=== PATIENT | male | born 1975 | race Caucasian/White ===

== ENCOUNTER → 2016-11-28 | Outpatient (CLI) | payer OTHER ==
--- NOTE | 2016-11-29 08:39 | USB ---
Reason for exam: clinical finding. History: Family history of breast cancer in maternal grandmother. Indicated problem(s): lump or thickening in the left breast. Physical Findings: Nurse Summary: prominent nodular tissue left breast 12/3 o'clock, all soft, movable, left breast BB 12 o'clock, 1 x 1cm, movable (nurse ts). US Breast LT Left breast ultrasound includes all four quadrants, the retroareolar region and axilla. Finding demonstrates a 1.2 x 0.5 x 1.2cm oval, solid, hyperechoic lesion at 11 o'clock palpable. These results were verbally communicated with the patient and result sheet given to the patient on 11/28/16. ASSESSMENT: Suspicious, BI-RAD 4 RECOMMENDATION: Ultrasound core biopsy of the left breast. Called Dr. Le with mammographic findings and has scheduled an appointment for the patient for 12/08/[address] Leblanc. PRELIMINARY REPORT CALLED AND FAXED TO DR. LEBLANC ON 11/29/16 /TP.
== END | disposition home or self-care (01) ==
LOC: RADUSWWP 13:59
PROVIDERS: ATTEND Family Medicine
DX: N60.02 Solitary cyst of left breast (principal); R92.8 Other abnormal and inconclusive findings on diagnostic imaging of breast

== ENCOUNTER → 2017-07-11 | Outpatient (CLI) | payer OTHER ==
--- NOTE | 2017-07-12 16:11 | MR ---
MRI CERVICAL SPINE AND THORACIC SPINE: DATED 07/11/2017 CLINICAL HISTORY: Neck pain and thoracic spine pain TECHNIQUE: Multiplanar, multisequence imaging of the cervical spine and thoracic is performed without IV contrast. COMPARISON: None. FINDINGS: Cervical spine: There is a focal reversal of the usual cervical lordosis at C3-C6. There is slight retrolisthesis of C5 on C6. Disc desiccation is noted from C2 through C6. Bone marrow signal is unremarkable. Visualize d portions of posterior fossa are also unremarkable. Cervical cord signal is within normal limits thr oughout. C2-C3: No significant disc disease, neuroforaminal stenosis or spinal canal stenosis. C3-C4: Mild uncovertebral hypertrophy and facet arthropathy resulting in minimal left neural foramina l narrowing. Right neuroforamen and spinal canal are patent. C4-C5: Uncovertebral hypertrophy and a small posterior disc osteophyte complex mildly narrows the bladimir tral subarachnoid space creating mild spinal canal stenosis and minimal bilateral neural foraminal na rrowing. C5-C6: There is a left paracentral disc herniation effacing the ventral subarachnoid space and creati ng mass effect upon the spinal cord resulting in moderate spinal canal stenosis and narrowing the lat eral recesses, left greater than right. Moderate to severe left neural foraminal narrowing and mild r ight neural foraminal narrowing are also seen as a result. No T2 hyperintense signal is seen within t he cord at this level to indicate acute cord edema or myelomalacia. C6-C7: Small broad-based disc bulge, facet arthropathy and uncovertebral hypertrophy resulting in mod erate left neural foraminal narrowing and mild right neural foraminal narrowing. No significant spina l canal stenosis. Thoracic spine: The thoracic vertebral bodies maintain normal vertebral body height and alignment. Multilevel disc de siccation is seen. Modic type II endplate changes are noted of the lower thoracic vertebral body endp lates. T1/T2 hyperintense vertebral body hemangioma seen of T7. Spinal cord signal is maintained thro ughout. T1-T5: No significant disc disease, neuroforaminal stenosis or spinal canal stenosis. T5-6: Disc desiccation is seen as well as a small broad-based disc bulge without significant neural f oraminal narrowing or spinal canal stenosis. T6-T7: Disc desiccation is seen as well as a small broad-based disc bulge without significant neural foraminal narrowing or spinal canal stenosis. T7-T8: No significant disc disease, neuroforaminal stenosis or spinal canal stenosis. T8-T9: There is a small central disc herniation and annular tear mildly narrowing the ventral subarac hnoid space and abutting the thecal sac creating mild spinal canal stenosis. No neural foraminal narr owing. T9-T10: There is disc desiccation without significant spinal canal stenosis or neuroforaminal narrowi ng. T10-T11: There is a small broad-based disc bulge resulting in mild bilateral neural foraminal narrowi ng. No spinal canal stenosis. T11-T12: There is a small broad-based disc bulge resulting in mild bilateral neural foraminal narrowi ng. No spinal canal stenosis. IMPRESSION: 1. Left paracentral disc herniation at C5-C6 creating moderate spinal canal stenosis impressing upon the spinal cord and resulting in moderate to severe left neural foraminal narrowing and mild right ne ural foraminal narrowing. No abnormal cord signal to indicate cord edema at this time or myelomalacia . 2. Small central disc herniation at T8-T9 with annular tear creating mild spinal canal stenosis witho ut neural foraminal narrowing. 3. Mild multilevel degenerative disc disease of the remainder of the cervical and thoracic spine with variable degrees of neural foraminal stenosis as described above. 4. Focal reversal of the usual cervical lordosis from C3 through C6 with slight retrolisthesis of C5 on C6.
== END | disposition home or self-care (01) ==
LOC: RADMRIMAIN 15:53
PROVIDERS: ATTEND Physician Assistant
DX: M48.02 Spinal stenosis, cervical region (principal); M48.04 Spinal stenosis, thoracic region; M99.71 Connective tissue and disc stenosis of intervertebral foramina of cervical region; M99.72 Connective tissue and disc stenosis of intervertebral foramina of thoracic region; M50.222 Other cervical disc displacement at C5-C6 level; M51.24 Other intervertebral disc displacement, thoracic region; M51.34 Other intervertebral disc degeneration, thoracic region; M50.30 Other cervical disc degeneration, unspecified cervical region; M43.12 Spondylolisthesis, cervical region
CPT/HCPCS: 72141; 72146

== ENCOUNTER → 2017-08-22 | Outpatient (CLI) | payer OTHER ==
--- NOTE | 2017-08-22 15:05 | XR ---
Abdomen HISTORY: Recurrent kidney stones Frontal view of the abdomen submitted. No comparisons Multiple calcifications are present over the left kidney, largest at the lower pole measures approxim ately 5 x 2 mm. There are likely 4-5 calcifications present. Bowel gas obscures the right kidney. Naeem g bases are not included on the exam. Possible phleboliths within the pelvis. IMPRESSION: Left nephrolithiasis as described
== END | disposition home or self-care (01) ==
LOC: RADXRYALE 13:21
PROVIDERS: ATTEND Urology
DX: N20.0 Calculus of kidney (principal)
CPT/HCPCS: 74018

== ENCOUNTER 2018-02-22 09:38 | Day surgery (SDC) | payer OTHER ==
[2018-02-19 14:58] VITALS: BMI 31.8
[~2018-02-22 09:38] MED LIST: LACTATED RINGERS 1,000 ML IV SCH
[2018-02-22 10:15] VITALS: TEMP 97.6
[2018-02-22] MEDS ORDERED: LIDOCAINE 1% 20 ML VIAL (10MG/ML) FOR IV START INTRADERMA ONE (10:16)
[2018-02-22] MEDS ORDERED: PROPOFOL 10 MG/ML 20 ML VIAL IV ONE (10:52)
[2018-02-22] MEDS ORDERED: LIDOCAINE 1% INJ 10MG/ML (20 ML MDV) ONE (10:52)
[2018-02-22 11:37] VITALS: RESP 16
--- NOTE | 2018-02-22 11:42 | P.PCN ---
Date of Procedure: 02/22/18 Procedure(s) Performed: Procedure: Esophagogastroduodenoscopy and biopsy. Preoperative diagnosis: Dysphagia. Postoperative diagnosis: 1. Hiatal hernia and corrugated esophagus raising the possibility of eosinophilic esophagitis. 2. Gastritis. 3. Antral biopsies obtained from the duodenum, antrum and esophagus. Preparation and sedation: Was provided by anesthesia. Brief clinical history: The patient is a 42-year-old male who is referred for this evaluation because of chronic dysphagia since his younger years. The patient has asthma and multiple food ALLERGIES. He had over the years episodes of obstructive dysphagia that invariably spontaneously resolved with no need for endoscopic intervention. No weight loss or other alarm symptoms. This evaluation is to assess for esophagitis or complicated reflux disease. Procedure: With the patient on her left lateral decubitus position and after informed consent and adequate sedation, I passed the Olympus-GIF 160 video upper endoscope through the cricopharyngeus down the esophagus. The esophagus showed multiple corrugations raising the possibility of eosinophilic esophagitis. GE junction was at 40-41 cm from the incisors and there was a sliding hiatal hernia measuring around 2 cm. There were some linear erosions as well and there could be an element of reflux esophagitis too. There was minimal hungup to the advancement of the endoscope through the GE junction area and to the rest of the stomach, was insufflated with air and inspected in detail including the retroflex view in the cardia. There was mottling, erythema and few short linear erosions in the antrum consistent with gastritis but no ulcers or active bleeding. Pyloric channel, duodenal bulb, post bulbar area and descending duodenum appeared within normal limits. Because of his symptoms, I obtained biopsies from the duodenum, antrum and esophagus then the endoscope was withdrawn. Esophageal dilation was not performed on this exam today. Plan: The patient was reassured. Will maximize acid suppressive therapy while I await the biopsy results. If this is eosinophilic esophagitis, I will support early treatment with budesonide before deciding on whether he needs dilation or not. I will keep you updated on his progress.
[2018-02-22 12:05] VITALS: BP 127/86; PULSE 59
== END 2018-02-22 12:42 | disposition home or self-care (01) ==
LOC: ORWHC2ENDO 09:38
DX: K44.9 Diaphragmatic hernia without obstruction or gangrene (principal); K29.50 Unspecified chronic gastritis without bleeding; K21.0 Gastro-esophageal reflux disease with esophagitis; R13.10 Dysphagia, unspecified; J45.909 Unspecified asthma, uncomplicated; Z87.442 Personal history of urinary calculi; Z88.0 Allergy status to penicillin; Z79.899 Other long term (current) drug therapy
CPT/HCPCS: 88305; 43239; J2001; J2704

== ENCOUNTER → 2018-11-08 | Outpatient (CLI) | payer OTHER ==
--- NOTE | 2018-11-08 09:01 | CT ---
EXAMINATION TYPE: CT brain wo/w con DATE OF EXAM: 11/08/2018 COMPARISON: None INDICATION: Headaches, history of sinus polyps DLP: 2197.5 mGycm, Automated exposure control for dose reduction was used. CONTRAST: 100 mL Isovue-300 CT of the brain is performed utilizing 3 mm thick sections through the posterior fossa and 3 mm thick sections through the remaining calvarium. Study is performed within 24 hours of arrival to the hosp [facility]. No abnormal hyperdensity is present to suggest an acute intracranial hemorrhage. No mass lesion is evident. No acute infarcts are evident. Ventricles and sulci are appropriate for the patient age. Postsurgical changes are through the bilateral maxillary sinuses. Very minimal mucosal thickening is within the dependent left maxillary sinus within the [id number]. Remaining paranasal sinuses are c lear. Right mastoid air cells are clear. Minimal fluid is in the posterior inferior left mastoid air cells. Mild left mastoiditis should be considered. IMPRESSIONS: 1. No suspicious acute intracranial process. Postcontrast CT brain. 2. Minimal left mastoiditis should be considered.
== END | disposition home or self-care (01) ==
LOC: RADCTMAIN 07:08
DX: R51 Headache (principal)
CPT/HCPCS: 70470; Q9967

== ENCOUNTER → 2020-02-27 | Outpatient (CLI) | payer OTHER ==
--- NOTE | 2020-02-27 16:43 | CT ---
EXAMINATION TYPE: CT brain wo/w con DATE OF EXAM: 02/27/2020 COMPARISON: CT brain November 08, 2018 HISTORY: KENNEDY x1 year CT DLP: 2312 mGycm. Automated Exposure Control for Dose Reduction was Utilized. TECHNIQUE: CT scan of the head is performed without and with IV Contrast, patient injected with 100 mL of Isovue 300. FINDINGS: Noncontrast images show no acute intracranial hemorrhage or midline shift. The ventricles and sulci are within normal limits in size. Oh-white matter differentiation is maintained. Postcon trast images show no suspicious enhancing intraparenchymal mass. Smaller caliber left maxillary sinus with evidence of prior paranasal sinus surgery is redemonstrated. No suspicious recurrent opacificat ion. The globes are intact bilaterally. Stable underpneumatized left mastoid air cells with patchy op acification and sclerosis, suspect chronic mastoiditis given no significant interval change. IMPRESSION: No suspicious new or acute finding identified.
--- NOTE | 2020-02-27 23:10 | US ---
EXAMINATION TYPE: US carotid duplex BILAT DATE OF EXAM: 02/27/2020 COMPARISON: NONE CLINICAL HISTORY: R51.9 headache. Symptom noted with bending over/exertion EXAM MEASUREMENTS: RIGHT: Peak Systolic Velocity (PSV) cm/sec ----- Right CCA: 45.0 ----- Right ICA: 44.2 ----- Right ECA: 74.3 ICA/CCA ratio: 1.0 RIGHT: End Diastole cm/sec ----- Right CCA: 15.4 ----- Right ICA: 14.2 ----- Right ECA: 19.0 LEFT: Peak Systolic Velocity (PSV) cm/sec ----- Left CCA: 72.1 ----- Left ICA: 79.8 ----- Left ECA: 110.8 ICA/CCA ratio: 1.1 LEFT: End Diastole cm/sec ----- Left CCA: 27.0 ----- Left ICA: 43.5 ----- Left ECA: 30.5 VERTEBRALS (direction of flow): Right Vertebral: Antegrade Left Vertebral: Antegrade Rhythm: Normal Mild intimal wall thickening is noted at bilateral carotid bifurcation and PSV is wnl bilaterally. IMPRESSION: There may be some minimal intimal thickening without significant flow-limiting stenosis. Criteria for Assigning % of Stenosis / Diameter reduction (Estimation based on the indirect measurements of the internal carotid artery velocities (ICA PSV). 1. Normal (no stenosis)=ICA PSV < 125 cm/s: ratio < 2.0: ICA EDV<40 cm/s. 2. Less than 50% stenosis=ICA PSV < 125 cm/s: ratio < 2.0: ICA EDV<40 cm/s. 3. 50 to 69% stenosis=ICA PSV of 125 to 230 cm/s: ration 2.0 ? 4.0: ICA EDV 40-100 cm/s. 4. Greater than 70% stenosis to near occlusion= ICA PSV > 230 cm/s: ratio > 4.0: ICA EDV > 100 cm/s. 5. Near occlusion= ICA PSV velocities may be low or undetectable: variable ratio and ICA EDV. 6. Total occlusion=unable to detect flow.
== END | disposition home or self-care (01) ==
LOC: RADUSWWP 15:44
DX: R51.9 Headache, unspecified (principal); Z88.0 Allergy status to penicillin; Z88.8 Allergy status to other drugs, medicaments and biological substances
CPT/HCPCS: 93880; 70470; Q9967

== ENCOUNTER → 2022-02-01 | Outpatient (CLI) | payer OTHER | END | disposition home or self-care (01) | LOC: LABWHC1 12:03 | PROVIDERS: ATTEND Surgery Plastic and Reconstructive Surgery | DX: I11.9 Hypertensive heart disease without heart failure (principal) | CPT/HCPCS: 36415; 93005 ==

== ENCOUNTER → 2022-03-30 | Outpatient (CLI) | payer OTHER ==
[2022-03-31 01:04] LABS: HCT 45.8 % (39.6-50.0); HGB 14.9 g/dL (13.0-17.0); MCH 29.7 pg (27.0-32.0); MCHC 32.5 g/dL (32.0-37.0); MCV 91.2 fL (80.0-97.0); Mean Platelet Volume 10.6 fL (9.5-12.2); NRBC Per 100 WBC 0 /100 WBCS (0.0-0.0); Platelet Count 311 X 10*3/uL (140-440); RBC 5.02 X 10*6/uL (4.40-5.60); WBC 8.06 X 10*3/uL (4.50-10.00)
== END | disposition home or self-care (01) ==
LOC: LABPAT 14:34
PROVIDERS: ATTEND Surgery Plastic and Reconstructive Surgery
DX: Z01.812 Encounter for preprocedural laboratory examination (principal)
CPT/HCPCS: 85027

== ENCOUNTER → 2022-04-21 | Day surgery (SDC) | payer OTHER ==
[2022-02-25 14:32] VITALS: BMI 32.9
[~2022-04-21] MED LIST changes: +ACETAMINOPHEN TAB 500 MG TAB PO STA; +BUPIVACAIN-EPI 0.25%-1:200,000 30 ML VIAL SQ ONE; +DEXAMETHASONE SOD PHOSPHATE 4 MG/ML 1 ML VIAL IV ONE; +DEXAMETHASONE SOD PHOSPHATE 4 MG/ML 1 ML VIAL ONE; +GABAPENTIN 300 MG CAP PO STA; +GLYCOPYRROLATE 0.2 MG/ML 2 ML VIAL ONE; +HYDROmorphone 0.5 MG/0.5 ML SYRINGE IVP PRN; +KETOROLAC 15 MG/ML 1 ML VIAL IVP SCH; +LACTATED RINGERS 1,000 ML IV ONE; -LACTATED RINGERS 1,000 ML IV SCH; +LIDOCAINE 1% (10MG/ML) FOR IV START INTRADERMA PRN; +LIDOCAINE 2% INJ 20 MG/ML (2 ML VIAL) ONE; +MELOXICAM 7.5 MG TAB PO SCH; +MIDAZOLAM 2 MG/2 ML VIAL IVP ONE; +MIDAZOLAM 2 MG/2 ML VIAL ONE; +NEOSTIGMINE 1 MG/ML 10 ML VIAL ONE; +ONDANSETRON 4 MG/2 ML VIAL IVP ONE; +PROPOFOL 10 MG/ML 20 ML VIAL IV ONE; +ROCURONIUM 10 MG/ML (5 ML VIAL) IV ONE; +ROPIVACAINE 5 MG/ML 30 ML VIAL ONE; +SUCCINYLCHOLINE CHLORIDE 200 MG/10 ML VIAL IV ONE; +TAMSULOSIN 0.4 MG CAP.ER.24H PO STA; +ePHEDrine 50 MG/ML 1 ML VIAL ONE; +fentaNYL (PF) 50 MCG/ML 2 ML AMP ONE; +oxyCODONE-APAP 7.5-325MG 1 EACH TAB PO PRN
--- NOTE | 2022-04-21 12:10 | P.GSHP ---
History of Present Illness H&P Date: 04/21/22 CHIEF COMPLAINT: Ventral hernia HISTORY OF PRESENT ILLNESS: The patient is a 47-year-old male presents with a history of swelling and pain along the abdomen from a hernia of the abdomen. Symptoms have been present for over 3 years. Now he presents for surgical intervention. PAST MEDICAL HISTORY: Please see list. PAST SURGICAL HISTORY: Please see list. MEDICATIONS: Please see list. ALLERGIES: Please see list. SOCIAL HISTORY: No illicit drug use FAMILY HISTORY: No reports of Crohn disease or ulcerative colitis. REVIEW OF ORGAN SYSTEMS: CONSTITUTIONAL: No reports of fevers or chills. No reports of weight loss despite prior attempts. GI: Denies any blood in stools or constipation. PHYSICAL EXAM: VITAL SIGNS: Stable GENERAL: Well-developed pleasant male in no acute distress. HEENT: No scleral icterus. Extraocular movements grossly intact. Moist buccal mucosa. NECK: Supple without lymphadenopathy. CHEST: Unlabored respirations. Equal bilateral excursions. CARDIOVASCULAR: Regular rate and rhythm. Distal 2+ pulses. ABDOMEN: Soft, nondistended. Palpable defect of the abdomen. No peritoneal signs. MUSCULOSKELETAL: No clubbing, cyanosis, or edema. ASSESSMENT: 1. Ventral hernia PLAN: 1. Recommend proceeding with robotic ventral hernia repair with mesh. 2. Benefits and risks of surgical intervention was discussed including possibility of open technique. 3. DVT prophylaxis. 4. Antibiotic prophylaxis. 5. Non narcotic pain management including abdominal wall block described 6. Blood sugar glucose described. 7. Weight loss management described. Past Medical History Past Medical History: Asthma, GERD/Reflux, Hearing Disorder / Deafness, Hyperlipidemia, Musculoskeletal Disorder Additional Past Medical History / Comment(s): Hx kidney stones., Scarlet Fever as a child. , Degenerative Disc Disease, herniated and slipped discs, Spinal Stenosis, bone spurs and chronic back pain. Seasonal allergies. Occasional migraines. "About 30% hearing loss, left ear the worst." , hernia. History of Any Multi-Drug Resistant Organisms: None Reported Past Surgical History: Ear Surgery, Orthopedic Surgery Additional Past Surgical History / Comment(s): Right knee arthroscopy, deviated septum septum, several myringotomies. Past Anesthesia/Blood Transfusion Reactions: No Reported Reaction, Motion Sickness, Postoperative Nausea & Vomiting (PONV) Additional Past Anesthesia/Blood Transfusion Reaction / Comment(s): "Slow to wake up." "Family members are slow to wake up too." Past Psychological History: No Psychological Hx Reported Smoking Status: Never smoker Past Alcohol Use History: Rare Past Drug Use History: None Reported - Past Family History Mother Family Medical History: No Reported History Medications and Allergies Home Medications Medication Instructions Recorded Confirmed Type Montelukast [Singulair] 10 mg PO QAM 02/19/18 02/25/22 History Atorvastatin (Unknown Dose) 1 tab PO HS 02/25/22 02/25/22 History Cetirizine HCl [Zyrtec] 10 mg PO DAILY 02/25/22 02/25/22 History Omeprazole [PriLOSEC] 20 mg PO QAM 02/25/22 02/25/22 History Allergy Injections 1 dose SQ WEEKLY 04/18/22 History Allergies Allergy/AdvReac Type Severity Reaction Status Date / Time Penicillins Allergy Rash/Hives Verified 04/18/22 11:26
[2022-04-21 13:21] LABS: Basophils # (A) 0.1 k/uL (0-0.2); Basophils % (A) 1 %; Eosinophils # (A) 0.3 k/uL (0-0.7); Eosinophils % (A) 5 %; HCT 46.6 % (39.0-53.0); HGB 16.6 gm/dL (13.0-17.5); Lymphocytes # (A) 2.1 k/uL (1.0-4.8); Lymphocytes % (A) 32 %; MCH 30.8 pg (25.0-35.0); MCHC 35.6 g/dL (31.0-37.0); MCV 86.6 fL (80.0-100.0); Mean Platelet Volume 7.7; Monocytes # (A) 0.4 k/uL (0-1.0); Monocytes % (A) 6 %; Neutrophils # (A) 3.6 k/uL (1.3-7.7); Neutrophils % (A) 54 %; Platelet Count 315 k/uL (150-450); RBC 5.38 m/uL (4.30-5.90); RDW 12.2 % (11.5-15.5); WBC 6.6 k/uL (3.8-10.6)
[2022-04-21] MEDS: HEPARIN SODIUM,PORCINE/PF 5,000 UNIT/0.5 ML SYRINGE SQ PRN ×2 (13:29→13:45)
[2022-04-21] MEDS: LACTATED RINGERS 1,000 ML IV SCH ×2 (13:30→18:41)
[2022-04-21 13:34] LABS: ALT 31 U/L (4-49); AST 29 U/L (17-59); African American GFR (CKD) >90 (>60 ml/min/1.73 sqM); Albumin 4.8 g/dL (3.5-5.0); Alkaline Phosphatase 89 U/L (38-126); Anion Gap 5 mmol/L; Blood Urea Nitrogen 14 mg/dL (9-20); Calcium 9.4 mg/dL (8.4-10.2); Carbon Dioxide 33 mmol/L (22-30); Chloride 103 mmol/L (98-107); Glucose 99 mg/dL (74-99); Non-African American GFR(CKD) 89 (>60 ml/min/1.73 sqM); Potassium 4.5 mmol/L (3.5-5.1); Sodium 141 mmol/L (137-145); Total Protein 8.2 g/dL (6.3-8.2)
[2022-04-21 13:49] VITALS: RESP 16
[2022-04-21 18:00] VITALS: TEMP 97.3
--- NOTE | 2022-04-21 19:03 | P.OP ---
Date of Procedure: 04/21/22 Description of Procedure: SURGEON: CHANELLE SHEA MD PREOPERATIVE DIAGNOSES: 1. Incarcerated ventral hernia 2. Gastroesophageal reflux disease 3. Obesity due to excess calories, BMI 33.1 POSTOPERATIVE DIAGNOSES: 1. Incarcerated ventral hernia, 1-cm 2. Gastroesophageal reflux disease 3. Obesity due to excess calories, BMI 33.1 4. Intra-abdominal peritoneal adhesions, pelvis OPERATION: 1. Robotic-assisted daVinci Xi laparoscopic lysis of adhesions over 50% of the case 2. Robotic-assisted daVinci Xi laparoscopic repair of initial incarcerated ventral hernia 1-cm without mesh ANESTHESIA: General with local, regional block ESTIMATED BLOOD LOSS: 5 mL. SPECIMENS: None. COMPLICATIONS: None. Operative Findings: 1. Moderate pelvic intra-abdominal adhesions of the right lower quadrant and lower mid-line 2. Lysis of adhesions over 50% of the case 3. Umbilical incarcerated contents 1-cm reduced and closed with fascial imbrication x 3. INDICATIONS: The patient is a 47-year-old male who presents with initial ventral hernia of umbilicus. Surgical intervention with laparoscopic versus robotic and open techniques were reviewed. Placement of mesh was also reviewed. Benefits and risks were thoroughly described. Informed consent was obtained. DESCRIPTION OF PROCEDURE: The patient was brought into the operating room and laid in supine position. After general induction, the abdomen had been prepped and draped in standard sterile fashion. Ioban draping was also placed. Prior to incision, a timeout protocol was confirmed with surgical team regarding the patient's name including procedures to be performed. The robot was primed prior to the procedure. Initial incision was made with an #11 blade along the left upper quadrant. A 0 degree 5 mm laparoscopic trocar entry was performed. Diagnostic laparoscopy moderate peritoneal adhesions of the lower midline. A 8 mm trocar was placed along the epigastrium and left upper quadrant. The 5-mm port was exchanged for an 8 mm robotic port. Placements of the ports were 20 cm from the target anatomy and 10 cm apart. Robotic trocars were maintained at the left lateral abdominal wall. The WeMonitori XI robot was previously primed, prepped and draped then docked along the left side of the patient. I sat at the robot Da Priti XI console where working arms of the robot including Bovie cautery connected to robotic scissors, vessel sealer and graspers placed by the administrative assistant coordinator. Severe peritoneal adhesions of the pelvis were addressed with vessel sealer for over 50% of the case. Blunt dissection was used to free incarcerated contents from the 1-cm umbilical defect. A 12-mm laparoscopic trocar was placed at the epigastrium The hernia bordering fascia was cleaned of peritoneal fat. Next, hemostasis was checked with cautery. Using #1 VLOC the 1-cm defect was oversewn. Due to the very small size of the defect, mesh was avoided. The 12-mm site was closed using 0-Vicryl and Neal Hinds. A final endoscopic imaging was obtained. All instruments and pneumoperitoneum were evacuated from the abdominal cavity. The da Priti XI robot was undocked from the patient. I re-scrubbed into the case for closure of incisions. The incisions were reapproximated using 4-0 Monocryl in an interrupted subcuticular fashion. Liquid glue was applied to the skin. Umbilical dressing using 4x4 and tegaderm was placed. At the end of the procedure, needle, sponge, and instrument count had been verified correct by nursing surgical services director. The patient was taken to the postanesthesia care unit in stable condition with abdominal binder. Plan - Discharge Summary Discharge Rx Participant: No New Discharge Prescriptions: New Ibuprofen [Motrin] 600 mg PO Q8HR PRN #30 tab PRN Reason: Pain Cyclobenzaprine [Flexeril] 10 mg PO TID #30 tab Simethicone [Gas-X] 125 mg PO AC-TID PRN #20 capsule PRN Reason: Pain Acetaminophen Tab [Tylenol Tab] 1,000 mg PO Q6HR PRN #30 tablet PRN Reason: Pain Continue Montelukast [Singulair] 10 mg PO QAM Allergy Injections 1 dose SQ WEEKLY Atorvastatin (Unknown Dose) 1 tab PO HS Omeprazole [PriLOSEC] 20 mg PO QAM Cetirizine HCl [Zyrtec] 10 mg PO DAILY Discharge Medication List Montelukast [Singulair] 10 mg PO QAM 02/19/18 [History] Atorvastatin (Unknown Dose) 1 tab PO HS 02/25/22 [History] Cetirizine HCl [Zyrtec] 10 mg PO DAILY 02/25/22 [History] Omeprazole [PriLOSEC] 20 mg PO QAM 02/25/22 [History] Allergy Injections 1 dose SQ WEEKLY 04/18/22 [History] Acetaminophen Tab [Tylenol Tab] 1,000 mg PO Q6HR PRN #30 tablet 04/21/22 [Rx] Cyclobenzaprine [Flexeril] 10 mg PO TID #30 tab 04/21/22 [Rx] Ibuprofen [Motrin] 600 mg PO Q8HR PRN #30 tab 04/21/22 [Rx] Simethicone [Gas-X] 125 mg PO AC-TID PRN #20 capsule 04/21/22 [Rx] Follow up Appointment(s)/Referral(s): Chanelle Shea MD [STAFF PHYSICIAN] - 04/26/22 (TELEHEALTH) Patient Instructions/Handouts: Ventral Hernia Repair (DC), Laparoscopic Herniorrhaphy (DC), Abdominal Binder (DC), *[facility] - Managing Your Pain After Surgery Without Opioids Activity/Diet/Wound Care/Special Instructions: DO NOT REMOVE DRESSING No lifting for 4 pounds in 4 weeks, May 22 Using antibacterial soap. May shower. No bathtub soaks for 2 weeks, May 05 Wear abdominal binder daily for comfort except for showering. Use ice along incisions for today to prevent swelling. Discharge Disposition: HOME SELF-CARE
[2022-04-21 19:40] VITALS: PULSE 96
[2022-04-21 19:51] VITALS: BP 117/62
--- NOTE | 2022-04-21 21:50 | P.ANPRN ---
Procedure Note - Anesthesia - Nerve Block Performed Bilateral Transversus Abdominis Single Time Out Performed: Yes Date of Procedure: 04/21/22 Procedure Start Time: 13:32 Procedure Stop Time: 13:40 Location of Patient: PreOp Indication: Acute Post-Operative Pain, Requested by Surgeon Sedation Type: Sedate with meaningful contact maintained Preparation: Sterile Prep Position: Supine Needle Types: Pajunk Needle Gauge: 21 Ultrasound used to visualize needle placement: Yes Ultrasound used to observe medication spread: Yes Blood Aspirated: No Pain Paresthesia on Injection Noted: No Resistance on Injection: Normal Image Stored and Saved: Yes Events: Uneventful and Well Tolerated (ropi .5% 20cc plus dexamethjasone 4mg given bilaterally)
== END | disposition home or self-care (01) ==
LOC: OR 12:18
PROVIDERS: ATTEND Surgery Plastic and Reconstructive Surgery
DX: K43.6 Other and unspecified ventral hernia with obstruction, without gangrene (principal); K21.9 Gastro-esophageal reflux disease without esophagitis; E66.01 Morbid (severe) obesity due to excess calories; Z68.33 Body mass index [BMI] 33.0-33.9, adult; E78.5 Hyperlipidemia, unspecified; J45.909 Unspecified asthma, uncomplicated; K66.0 Peritoneal adhesions (postprocedural) (postinfection); Z87.442 Personal history of urinary calculi; Z88.0 Allergy status to penicillin; G89.18 Other acute postprocedural pain
CPT/HCPCS: 64488; 80053; 85025; 49653; J2250; J0330; J1100; J2710; J0690; J2405; J3010; J2795; J1885; J2704; J1644; J2001; 88302